=== PATIENT | male | born 1945 | race Caucasian/White ===

== ENCOUNTER 2020-09-06 14:26 | Inpatient (IN) | payer MEDICARE ==
[~2020-09-06] VITALS: Ht 172.7 cm; Wt 77.1 kg
[2020-09-06 14:55] LABS: BASOPHILS 0.2 % (0-2); EOSINOPHILS 1.4 % (0-7); HEMATOCRIT 28.8 % (42.0-54.0); HEMOGLOBIN 9.2 g/dL (13.5-17.5); IMMATURE GRANULOCYTES 0.2 % (0-5); LYMPHOCYTES 15.9 % (15-50); MCH 31.6 pg (26.0-34.0); MCHC 31.9 g/dL (31.0-37.0); MEAN PLATELET VOLUME 8.8 fL (7.4-10.4); MONOCYTES 4.7 % (2-11); NEUTROPHILS 77.6 % (40-80); PLATELET COUNT 304 10x3/uL (130-400); RBC 2.91 10x6/uL (4.20-6.10); RDW 15.3 % (11.5-14.5); WBC 10.1 10x3/uL (4.8-10.8)
[2020-09-06] MEDS ORDERED: BAYER CHEWABLE81 MG (14:57)
[2020-09-06] MEDS ORDERED: LIPITOR40 MG (14:58)
[2020-09-06] MEDS ORDERED: KEFLEX500 MG (14:59)
[2020-09-06] MEDS ORDERED: CARBIDOPA-LEVO1 EAC2 (14:59)
[2020-09-06] MEDS ORDERED: CALCIUM 500 +1 EAC3 (14:59)
[2020-09-06 15:00] VITALS: BP 109/57
[2020-09-06] MEDS ORDERED: DILTIAZEM 24HR120 M3 (15:00)
[2020-09-06] MEDS ORDERED: ACCUPRIL20 MG (15:00)
[2020-09-06] MEDS ORDERED: MAG-OX 400 MG400 MG (15:00)
[2020-09-06] MEDS ORDERED: CO Q-10100 MG (15:00)
[2020-09-06] MEDS ORDERED: OXYCODONE HCL10 MG (15:01)
[2020-09-06] MEDS ORDERED: VITAMIN B-1250 MG (15:01)
[2020-09-06 15:15] LABS: APTT 43.9 SECONDS (22.8-39.4); INR 3.36 (0.85-1.17); PROTIME 31.7 SECONDS (11.6-15.0)
[2020-09-06 15:24] LABS: ALBUMIN 2.7 g/dL (3.4-5.0); ALKALINE PHOSPHATASE 70 U/L (30-120); ALT (SGPT) 13 U/L (10-68); CALC OSMOLALITY 287 mosm/kg (275-300); CALCIUM 7.9 mg/dL (8.5-10.1); CARBON DIOXIDE 24.2 mmol/L (21.0-32.0); CHLORIDE - SERUM 108 mmol/L (98-107); CKMB 0.3 U/L (0.0-3.6); CREATINE KINASE 110 UL (21-232); CREATININE - SERUM 1.5 mg/dL (0.6-1.3); GLUCOSE 118 mg/dL (74-106); MAGNESIUM - SERUM 2.4 mg/dL (1.8-2.4); PROTEIN - SERUM 6.2 g/dL (6.4-8.2); SODIUM 141 mmol/L (136-145); TROPONIN-I 0.045 ng/mL (0.000-0.060); UREA NITROGEN 30 mg/dL (7-18); eGFR NON AFRICAN AMERICAN 48 mL/min (90-120)
[2020-09-06 15:28] LABS: POTASSIUM - SERUM 2.9 mmol/L (3.5-5.1); THYROID STIMULATING HORMONE 76.12 uIU/mL (0.36-3.74)
[2020-09-06 19:33] VITALS: BP 149/64
[2020-09-06 21:05] VITALS: BP 152/69
[2020-09-06 23:19] LABS: UDS - AMPHET NEGATIVE QUAL (NEGATIVE); UDS - BARB NEGATIVE QUAL (NEGATIVE); UDS - BENZO NEGATIVE QUAL (NEGATIVE); UDS - COCAINE NEGATIVE QUAL (NEGATIVE); UDS - OPIATE NEGATIVE QUAL (NEGATIVE); UDS - PCP NEGATIVE QUAL (NEGATIVE); UDS - THC NEGATIVE QUAL (NEGATIVE)
[2020-09-06 23:21] LABS: BILIRUBIN NEGATIVE (NEGATIVE); KETONE NEGATIVE (NEGATIVE); NITRITE POSITIVE (NEGATIVE); UROBILINOGEN NORMAL mg/dL (< 2)
[2020-09-06 23:24] LABS: BACTERIA MODERATE HPF (NONE SEEN); SQUAMOUS EPITHELIAL 0-5 HPF (0-4)
[2020-09-07 00:28] VITALS: BP 155/70
[2020-09-07 01:43] VITALS: BP 162/68
--- NOTE | 2020-09-07 01:50 | NUR ---
PT AWAKE AT THIS TIME USING URINAL. DENIES NEEDS, CALL LIGHT WITHIN REACH, WILL CONTINUE TO MONITOR.
--- NOTE | 2020-09-07 02:44 | NUR ---
potassium and ns infusion complete at this time.
[2020-09-07 05:44] VITALS: BP 154/76
[2020-09-07 06:44] LABS: BASOPHILS 0.3 % (0-2); EOSINOPHILS 3.3 % (0-7); HEMATOCRIT 28.9 % (42.0-54.0); LYMPHOCYTE ABS# 1.64 10x3/uL (1.32-3.57); LYMPHOCYTES 21.8 % (15-50); MCH 31.3 pg (26.0-34.0); MCHC 31.1 g/dL (31.0-37.0); MCV 100.3 fL (80.0-100.0); MEAN PLATELET VOLUME 9.1 fL (7.4-10.4); MONOCYTES 4.8 % (2-11); NEUTROPHIL ABS# 5.27 10x3/uL (1.78-5.38); NEUTROPHILS 69.8 % (40-80); PLATELET COUNT 321 10x3/uL (130-400); RBC 2.88 10x6/uL (4.20-6.10); RDW 15.4 % (11.5-14.5)
[2020-09-07 06:45] LABS: WBC 7.5 10x3/uL (4.8-10.8)
[2020-09-07 06:53] LABS: ALBUMIN 2.6 g/dL (3.4-5.0); BILIRUBIN - TOTAL 0.73 mg/dL (0.2-1.3); CARBON DIOXIDE 27.2 mmol/L (21.0-32.0); CREATININE - SERUM 1.2 mg/dL (0.6-1.3); MAGNESIUM - SERUM 2.4 mg/dL (1.8-2.4); PROTEIN - SERUM 6.1 g/dL (6.4-8.2)
[2020-09-07 06:54] LABS: ANION GAP 11.5 mmol/L (8-16); POTASSIUM - SERUM 3.7 mmol/L (3.5-5.1)
--- NOTE | 2020-09-07 08:00 | NUR ---
TALKING WITH ON PHONE. ANSWERS QUESTIONS AND ABLE TO FOLLOW INSTRUCTIONS. RN SPOKE WITH PER PT REQUEST ALSO.
[2020-09-07 20:02] VITALS: BP 178/90
[2020-09-07 22:58] VITALS: BP 165/88; BMI 25.9
[2020-09-08 01:01] VITALS: BP 143/76
--- NOTE | 2020-09-08 02:12 | NUR ---
PATIENT IS DROWSY BUT EASILY ROUSABLE. CONTINUES TO DISPLAY CONFUSION. REPORTS SOB WITH TURNING IN BED. PATIENT IS NONWEIGHT BEARING FOR FX TO LEFT HIP.
[2020-09-08 05:55] VITALS: BP 168/75
--- NOTE | 2020-09-08 07:15 | NUR ---
REC'D IN BED WITH EYES CLOSED EASILY TO AROUSED WHEN NAME IS CALLED. RESP EVEN AND UNLABORED WITH NO DISTRESS NOTED. CAN EXPRESS NEEDS AND WANTS. NO C/O NOTED OR VOICED AT THIS TIME. ASSESSMENT COMPLETED. C/L IN REACH AT BEDSIDE
--- NOTE | 2020-09-08 08:34 | NUR ---
PT MAYRA ISBELL WAS GIVEN UP DATE AT THIS TIME.
[2020-09-08 09:02] VITALS: BP 159/79
[2020-09-08 10:20] LABS: BASOPHILS 0.3 % (0-2); EOSINOPHILS 2.1 % (0-7); HEMATOCRIT 30.4 % (42.0-54.0); HEMOGLOBIN 9.5 g/dL (13.5-17.5); IMMATURE GRANULOCYTES 0.4 % (0-5); LYMPHOCYTE ABS# 1.58 10x3/uL (1.32-3.57); LYMPHOCYTES 20.6 % (15-50); MCH 31.5 pg (26.0-34.0); MCHC 31.3 g/dL (31.0-37.0); MCV 100.7 fL (80.0-100.0); MEAN PLATELET VOLUME 8.4 fL (7.4-10.4); MONOCYTES 3.9 % (2-11); NEUTROPHIL ABS# 5.59 10x3/uL (1.78-5.38); NEUTROPHILS 72.7 % (40-80); RBC 3.02 10x6/uL (4.20-6.10); RDW 15.5 % (11.5-14.5); WBC 7.7 10x3/uL (4.8-10.8)
[2020-09-08 10:21] LABS: PLATELET COUNT 252 10x3/uL (130-400)
[2020-09-08 10:41] LABS: ALBUMIN 2.5 g/dL (3.4-5.0); ANION GAP 9.7 mmol/L (8-16); BILIRUBIN - TOTAL 0.72 mg/dL (0.2-1.3); CALCIUM 7.8 mg/dL (8.5-10.1); CARBON DIOXIDE 26.6 mmol/L (21.0-32.0); CREATININE - SERUM 1.1 mg/dL (0.6-1.3); POTASSIUM - SERUM 3.3 mmol/L (3.5-5.1); PROTEIN - SERUM 5.1 g/dL (6.4-8.2)
--- NOTE | 2020-09-08 10:41 | NUR ---
RETURN CALL TO MAYRA ISBELL AT THIS TIME GIVEN ANOTHER UPDATE ON PT.
[2020-09-08 12:42] VITALS: BP 163/78
--- NOTE | 2020-09-08 14:30 | NUR ---
PATIENT IS WITHOUT DISTRESS.MONITOR FOR NEEDS
[2020-09-08 15:48] VITALS: BP 110/83
--- NOTE | 2020-09-08 19:13 | NUR ---
PATIENT RESTING IN BED WITH NO S/S OF DISTRESS. PATIENT DENIES NEEDS AT THIS TIME. BED IN LOWEST POSITION, CALL LIGHT WITHIN REACH. ENCOURAGED PATIENT TO CALL IF PATIENT HAS NEEDS.
[2020-09-08 20:18] VITALS: BP 146/52
--- NOTE | 2020-09-08 20:20 | NUR ---
ADMINISTERED MEDS PER ORDERS. PATIENT MALDONADO WELL. ENCOURAGED TO CALL IF PATIENT HAS NEEDS.
[2020-09-09 00:59] VITALS: BP 131/74
[2020-09-09 05:05] VITALS: BP 144/96
[2020-09-09 06:28] LABS: BASOPHILS 0.3 % (0-2); EOSINOPHILS 1.8 % (0-7); HEMATOCRIT 26.2 % (42.0-54.0); HEMOGLOBIN 8.2 g/dL (13.5-17.5); IMMATURE GRANULOCYTES 0.2 % (0-5); LYMPHOCYTE ABS# 1.75 10x3/uL (1.32-3.57); LYMPHOCYTES 26.6 % (15-50); MCH 31.3 pg (26.0-34.0); MCHC 31.3 g/dL (31.0-37.0); MEAN PLATELET VOLUME 9.2 fL (7.4-10.4); MONOCYTES 4.1 % (2-11); NEUTROPHIL ABS# 4.41 10x3/uL (1.78-5.38); PLATELET COUNT 284 10x3/uL (130-400); RBC 2.62 10x6/uL (4.20-6.10); RDW 15.6 % (11.5-14.5); WBC 6.6 10x3/uL (4.8-10.8)
[2020-09-09 06:38] LABS: PROTIME 45.9 SECONDS (11.6-15.0)
[2020-09-09 06:40] LABS: INR 5.38 (0.85-1.17)
--- NOTE | 2020-09-09 06:43 | NUR ---
PAGED DR. AYALA IN REGARDS TO INR 5.38
--- NOTE | 2020-09-09 06:48 | NUR ---
SPOKE WITH DR. AYALA WHO GAVE ORDER TO HOLD COUMADIN TIMES ONE DOSE AND RECHECK INR IN THE AM. ORDERS ENTERED.
[2020-09-09 07:00] LABS: ALBUMIN 2.5 g/dL (3.4-5.0); ALKALINE PHOSPHATASE 61 U/L (30-120); CALC OSMOLALITY 286 mosm/kg (275-300); CALCIUM 7.5 mg/dL (8.5-10.1); CARBON DIOXIDE 26.5 mmol/L (21.0-32.0); CHLORIDE - SERUM 111 mmol/L (98-107); GLUCOSE 91 mg/dL (74-106); POTASSIUM - SERUM 3.4 mmol/L (3.5-5.1); PROTEIN - SERUM 5.2 g/dL (6.4-8.2); SODIUM 142 mmol/L (136-145); UREA NITROGEN 24 mg/dL (7-18); eGFR NON AFRICAN AMERICAN 77 mL/min (90-120)
[2020-09-09 07:14] LABS: ALT (SGPT) 11 U/L (10-68)
--- NOTE | 2020-09-09 07:17 | NUR ---
BEDSIDE REPORT RECIEVED FROM NIGHT NURSE, PATIENT IN BED SLEEPING AROUSES TO VOICE, DENIES NEEDS AT THIS TIME. BED LOW POSITION, CALL LIGHT IN REACH. WILL CONTINUE TO MONITOR.
[2020-09-09 08:14] VITALS: BP 114/58
[2020-09-09 12:32] VITALS: BP 117/48
[2020-09-09 15:19] LABS: INR 4.87 (0.85-1.17); PROTIME 42.4 SECONDS (11.6-15.0)
[2020-09-09 17:04] VITALS: BP 128/56
--- NOTE | 2020-09-09 19:56 | NUR ---
PATIENT RESTING IN BED WITH EYES CLOSED AND NO S/S OF DISTRESS. BED IN LOWEST POSITION AND CALL LIGHT WITHIN REACH.
[2020-09-09 20:00] VITALS: BP 145/58
[2020-09-10] VITALS (7 sets, daily range): BP systolic 116–151; BP diastolic 38–71
--- NOTE | 2020-09-10 08:17 | NUR ---
IN BED ASLEEP. AROUSES TO VOICE. DENIES NEEDS AT THIS TIME. BED LOW POSITION, CALL LIGHT IN REACH. SET ROOM PHONE IN REACH. URINAL IN REACH, NASAL CANNULA IN PLACE. WILL CONTINUE TO MONITOR.
--- NOTE | 2020-09-10 12:29 | NUR ---
IN BED TALKING ON THE PHONE. DENIES NEEDS AT THIS TIME. BED LOW POSITION, CALL LIGHT IN REACH. WILL CONTINUE TO MONITOR.
--- NOTE | 2020-09-10 12:57 | NUR ---
Nutrition follow-up: Diet: Regular PO intake ~25-50% of meals; has been NPO for some meals Labs reviewed Wt: 170# Will continue to provide food choices and honor food preferences. RDN follow-up: 09/14/20
--- NOTE | 2020-09-10 19:34 | NUR ---
PATIENT RESTING IN BED WITH NO S/S OF DISTRESS AND DENIES NEEDS AT THIS TIME. BED IN LOWEST POSITION AND CALL LIGHT WITHIN REACH. ENCOURAGED THE PATIENT TO CALL IF HE HAS NEEDS.
--- NOTE | 2020-09-10 20:17 | NUR ---
ADMINISTERED MEDS PER ORDERS. PATIENT MALDONADO WELL. DENIES OTHER NEEDS AT THIS TIME.
[2020-09-11 03:55] VITALS: BP 168/76
[2020-09-11 07:12] LABS: BASOPHILS 0.4 % (0-2); EOSINOPHILS 2.3 % (0-7); HEMOGLOBIN 8.8 g/dL (13.5-17.5); IMMATURE GRANULOCYTES 0.2 % (0-5); LYMPHOCYTE ABS# 1.42 10x3/uL (1.32-3.57); MCH 31.5 pg (26.0-34.0); MCHC 31.4 g/dL (31.0-37.0); MCV 100.4 fL (80.0-100.0); MONOCYTES 3.9 % (2-11); NEUTROPHIL ABS# 3.87 10x3/uL (1.78-5.38); NEUTROPHILS 68.2 % (40-80); PLATELET COUNT 272 10x3/uL (130-400); RBC 2.79 10x6/uL (4.20-6.10); RDW 15.4 % (11.5-14.5); WBC 5.7 10x3/uL (4.8-10.8)
[2020-09-11 07:24] LABS: ALBUMIN 2.5 g/dL (3.4-5.0); ALKALINE PHOSPHATASE 69 U/L (30-120); ALT (SGPT) 11 U/L (10-68); CALC OSMOLALITY 277 mosm/kg (275-300); CALCIUM 7.8 mg/dL (8.5-10.1); CARBON DIOXIDE 25.7 mmol/L (21.0-32.0); CHLORIDE - SERUM 108 mmol/L (98-107); CREATININE - SERUM 0.9 mg/dL (0.6-1.3); GLUCOSE 88 mg/dL (74-106); POTASSIUM - SERUM 3.7 mmol/L (3.5-5.1); PROTEIN - SERUM 5.5 g/dL (6.4-8.2); SODIUM 139 mmol/L (136-145); UREA NITROGEN 15 mg/dL (7-18); eGFR NON AFRICAN AMERICAN 87 mL/min (90-120)
[2020-09-11 09:01] VITALS: BP 168/75
--- NOTE | 2020-09-11 09:35 | NUR ---
PT SITTING UP IN BED TALKING ON PHONE. RESP EVEN AND UNLABORED. O2 @ 2L NC IN PLACE. PT DENIES PAIN AT THIS TIME. IV TO LEFT AC WITH NS @ 50ML/HR INFUSING VIA PUMP. SITE WITHOUT REDNESS OR EDEMA. DENIES NEEDS AT THIS TIME. CL WITHIN REACH. ENCOURAGED TO CALL WITH NEEDS. CONTINUE POC
[2020-09-11 14:28] VITALS: BP 139/60
[2020-09-11 18:33] VITALS: BP 116/48
[2020-09-11 21:18] VITALS: BP 153/68
[2020-09-12 00:51] VITALS: BP 137/63
--- NOTE | 2020-09-12 03:17 | NUR ---
ASSESSED AT THE BEGINNING OF THE SHIFT. PT IS ALERT AND ORIENTED WITH A TOUCH OF CONFUSION. HE IS ABLE TO CALL FOR ASSIST AND USE THE URINAL MOST OF THE TIME. O2 IS IN PLACE AT 2 LITERS AND TELEMETRY SHOWS 63 SINUS RHYTHM. HE HAS NOT COMPLAINTED ABOUT ANY DISTRESS AND HAS LEFT THE TV OFF TONIGHT.
[2020-09-12 05:48] VITALS: BP 148/72
[2020-09-12 07:56] VITALS: BP 147/70
--- NOTE | 2020-09-12 09:45 | NUR ---
PT RESTING QUIETLY IN BED. NO ACUTE DISTSRESS NOTED AT THIS TIME. O2 @ 2L NC IN PLACE. DENIES PAIN. IV TO LEFT AC WITH NS @ 50ML/HR INFUSING VIA PUMP. SITE WITHOUT REDNESS OR EDEMA. DENIES FURTHER NEEDS AT THIS TIME. CL WITHIN REACH. ENCOURAGED TO CALL WITH NEEDS. CONTINUE POC
--- NOTE | 2020-09-12 09:58 | MORECARE ---
CASE MANAGEMENT DISCHARGE SUMMARY PATIENT: MARICRUZ ISBELL UNIT: [id number] ADM DATE: 09/06/20 AGE: 75 : 45 SEX: M ROOM/BED: D.2201 AUTHOR: MEGHAN HOUSE PHYSICIAN: REFERRING PHYSICIAN: KAT OSEI MD DATE OF SERVICE: 09/12/20 Discharge Plan Patient Name: MARICRUZ ISBELL [facility] [facility] 1945 Planned Disposition: [facility] Facility Anticipated Discharge Date: Discharge Date: Expected LOS: Initial Reviewer: [email or web address] Initial Review Date: 09/06/2020 Generated: 09/12/20 10:57 am Patient Name: MARICRUZ ISBELL Page [id number] at 0958 All edits/amendments must be made on the electronic document DICTATION DATE: 09/12/2057 ENGLISH TUTOR: OPAL 09/12/2057 RPT#: [id number] DC DATE: STATUS: ADM IN [facility] [address] [place] [address] END OF REPORT
[2020-09-12 12:23] VITALS: BP 115/65
[2020-09-12 17:15] VITALS: BP 142/71
[2020-09-12 20:31] VITALS: BP 146/66
--- NOTE | 2020-09-12 22:11 | NUR ---
PT IS SLEEP IN THE BEGINNING OF SHIFT. EASY TO AROUSE WHEN GIVEN MEDICATION. ALERT AND ORIENTED. NO PAIN NOR DISTRESS NOTED. WILL CONTINUE POC.
[2020-09-13 00:25] VITALS: BP 132/61
[2020-09-13 04:01] VITALS: BP 142/74
--- NOTE | 2020-09-13 04:58 | NUR ---
PT RESTED WELL THROUGHOUT THE NIGHT. NO COMPLAINTS OF PAIN NOR DISCOMFORT. O2 IS STILL AT 2L. NO SOB NOTED. PT CURRENTLY RESTING AT THIS TIME.
[2020-09-13 06:58] LABS: ALBUMIN 2.6 g/dL (3.4-5.0); ALKALINE PHOSPHATASE 80 U/L (30-120); ALT (SGPT) 12 U/L (10-68); BILIRUBIN - TOTAL 0.91 mg/dL (0.2-1.3); CALC OSMOLALITY 270 mosm/kg (275-300); CALCIUM 7.9 mg/dL (8.5-10.1); CARBON DIOXIDE 25.4 mmol/L (21.0-32.0); CHLORIDE - SERUM 106 mmol/L (98-107); GLUCOSE 87 mg/dL (74-106); POTASSIUM - SERUM 3.4 mmol/L (3.5-5.1); PROTEIN - SERUM 5.8 g/dL (6.4-8.2); SODIUM 136 mmol/L (136-145); UREA NITROGEN 12 mg/dL (7-18); eGFR NON AFRICAN AMERICAN 77 mL/min (90-120)
[2020-09-13 07:07] LABS: INR 1.44 (0.85-1.17); PROTIME 16.3 SECONDS (11.6-15.0)
[2020-09-13 07:38] LABS: BASOPHILS 0.1 % (0-2); EOSINOPHILS 1.4 % (0-7); HEMATOCRIT 29.1 % (42.0-54.0); HEMOGLOBIN 9.2 g/dL (13.5-17.5); IMMATURE GRANULOCYTES 0.3 % (0-5); LYMPHOCYTE ABS# 1.77 10x3/uL (1.32-3.57); LYMPHOCYTES 24.9 % (15-50); MCH 31.4 pg (26.0-34.0); MCHC 31.6 g/dL (31.0-37.0); MCV 99.3 fL (80.0-100.0); MEAN PLATELET VOLUME 9.4 fL (7.4-10.4); MONOCYTES 3.7 % (2-11); NEUTROPHIL ABS# 4.96 10x3/uL (1.78-5.38); NEUTROPHILS 69.6 % (40-80); PLATELET COUNT 269 10x3/uL (130-400); RBC 2.93 10x6/uL (4.20-6.10); RDW 16.2 % (11.5-14.5); WBC 7.1 10x3/uL (4.8-10.8)
--- NOTE | 2020-09-13 07:46 | MORECARE ---
CASE MANAGEMENT DISCHARGE SUMMARY PATIENT: MARICRUZ ISBELL UNIT: [id number] ADM DATE: 09/06/20 AGE: 75 : 45 SEX: M ROOM/BED: D.2201 AUTHOR: MEGHAN HOUSE PHYSICIAN: REFERRING PHYSICIAN: KAT OSEI MD DATE OF SERVICE: 09/13/20 Discharge Plan Patient Name: MARICRUZ ISBELL [facility] [facility] 1945 Planned Disposition: [facility] Facility Anticipated Discharge Date: Discharge Date: Expected LOS: Initial Reviewer: [email or web address] Initial Review Date: 09/06/2020 Generated: 09/13/20 8:46 am DCPIA - Discharge Planning Initial Assessment Updated by [email or web address]: Aleja Fox on 09/13/20 7:45 am * Facility Name [facility] External Providers External Provider: [facility] Next Contact Date: Service Request Date: Service Type: Resolution: Reviewer: Comments: Last DP export: 09/12/20 8:58 a Patient Name: MARICRUZ ISBELL Page [phone] at 0746 All edits/amendments must be made on the electronic document DICTATION DATE: 09/13/20745 WHARF TENDER: OPAL 09/13/20745 RPT#: [id number] DC DATE: STATUS: ADM IN [facility] [address] [place] [address] END OF REPORT
--- NOTE | 2020-09-13 07:59 | NUR ---
PATIENT K+ IS 3.[address] WITH MORNING MEDS. CONTINUE WITH PLAN OF CARE
[2020-09-13 08:13] VITALS: BP 154/77
[2020-09-13 12:30] VITALS: BP 141/66
--- NOTE | 2020-09-13 14:41 | NUR ---
PATIENT LAYING IN BED EASILY AWAKENED. NO S/S OF DISTRESS. CL IN REACH. ADMINISTERED SCHEDULED MEDICATIONS. CONTINUE WITH PLAN OF CARE
[2020-09-13 18:35] VITALS: BP 153/72
[2020-09-14 01:16] VITALS: BP 146/65
[2020-09-14 05:15] VITALS: BP 149/59
--- NOTE | 2020-09-14 05:28 | NUR ---
Pt has rested in bed this noc. Assisted with repositioning. IV running per order. Has denied pain/discomfort all night. Pt has been oriented to self and place also knows it is the night. SLept well.
--- NOTE | 2020-09-14 09:39 | NUR ---
ALERT AND ORIENTED TO SELF AND PLACE. ASSESSMENT COMPLETE. DENIES NEEDS. WILL CONTINUE TO MONITOR.
[2020-09-14 10:26] VITALS: BP 146/73
[2020-09-14 10:49] VITALS: Ht 172.7 cm; Wt 77.1 kg
--- NOTE | 2020-09-14 15:00 | NUR ---
IV ACCIDENTALLY PULLED OUT BY PATIENT TO LEFT AC WITH TIP INTACT. RESITED TO RIGHT OUTTER AC AFTER ONE ATTEMPT WITH 22 GUAGE.
[2020-09-14 15:12] VITALS: BP 147/65
[2020-09-14 19:30] VITALS: BP 167/79
[2020-09-14 21:01] VITALS: BP 139/59
--- NOTE | 2020-09-14 23:12 | NUR ---
Assumed care of pt after report completed with day nurse. Pt lying in bed watching TV on initial report. IV infusing per order. Pt is A&OX4 tonight. No c/o pain/discomfort. Pt did verbalize his excitement to work with therapies today and is hopeful for progress with strengthening. Pt has been utilizing urinal so far this shift. Currently resting in bed with lights and TV off.
[2020-09-15 00:24] VITALS: BP 127/59
--- NOTE | 2020-09-15 05:13 | NUR ---
Pt remains resting in bed. Repositioned and assisted to clean after bouts of incontinence. Continues to deny pain.
[2020-09-15 05:55] VITALS: BP 184/88
[2020-09-15 08:36] VITALS: BP 172/77
--- NOTE | 2020-09-15 11:39 | NUR ---
RESTING IN BED, NO DISTESS NOTED, IV INFUSING PER RAC, O2 PER NC, TELE IN PLACE, CONT TO MONITOR
[2020-09-15 12:08] VITALS: BP 138/64
[2020-09-15 15:55] LABS: INR 1.53 (0.85-1.17)
[2020-09-15 17:06] VITALS: BP 180/83
--- NOTE | 2020-09-15 17:11 | NUR ---
INCONT CARE PROVIDED, DRESSING TO COCCYX DRY AND INTACT, CONT TO MONITOR SKIN
[2020-09-15 20:37] VITALS: BP 162/74
--- NOTE | 2020-09-15 21:40 | NUR ---
Assumed care of patient after rounds/report. Pt lying in bed watching TV. Remains A&OX4. Denies pain/discomfort. Addendum to assessment is pt remains on O2 via NC @ 2Lpm. Sats remain WNL and no SOB/Dyspnea.
[2020-09-16] VITALS (8 sets, daily range): BP systolic 137–185; BP diastolic 60–80
--- NOTE | 2020-09-16 06:24 | NUR ---
Pt is in bed resting at this time. Pt had elevated BP on assessment and this nurse rechecked same. Provider o/c notified and telephone order rec'd to increase scheduled AM diltiazem and administer. AM meds given and BP rechecked. BP is lowering currently. Pt has remained asymptomatic of hypertension.
--- NOTE | 2020-09-16 07:41 | NUR ---
resting in bed, no distress noted, iv infusing, cont to monitor pain and bp
[2020-09-16 07:45] LABS: BASOPHILS 0.3 % (0-2); EOSINOPHILS 1.9 % (0-7); HEMATOCRIT 28.5 % (42.0-54.0); HEMOGLOBIN 9.3 g/dL (13.5-17.5); IMMATURE GRANULOCYTES 0.2 % (0-5); LYMPHOCYTE ABS# 1.56 10x3/uL (1.32-3.57); LYMPHOCYTES 24.8 % (15-50); MCH 31.6 pg (26.0-34.0); MCHC 32.6 g/dL (31.0-37.0); MCV 96.9 fL (80.0-100.0); MEAN PLATELET VOLUME 9.3 fL (7.4-10.4); MONOCYTES 5.1 % (2-11); NEUTROPHIL ABS# 4.27 10x3/uL (1.78-5.38); NEUTROPHILS 67.7 % (40-80); PLATELET COUNT 222 10x3/uL (130-400); RBC 2.94 10x6/uL (4.20-6.10); RDW 16.3 % (11.5-14.5); WBC 6.3 10x3/uL (4.8-10.8)
[2020-09-16 08:15] LABS: ALBUMIN 2.4 g/dL (3.4-5.0); ALKALINE PHOSPHATASE 84 U/L (30-120); ALT (SGPT) 14 U/L (10-68); BILIRUBIN - TOTAL 0.86 mg/dL (0.2-1.3); CALC OSMOLALITY 272 mosm/kg (275-300); CALCIUM 7.8 mg/dL (8.5-10.1); CARBON DIOXIDE 26.1 mmol/L (21.0-32.0); CHLORIDE - SERUM 105 mmol/L (98-107); CREATININE - SERUM 0.9 mg/dL (0.6-1.3); GLUCOSE 82 mg/dL (74-106); POTASSIUM - SERUM 3.2 mmol/L (3.5-5.1); PROTEIN - SERUM 5.4 g/dL (6.4-8.2); SODIUM 138 mmol/L (136-145); UREA NITROGEN 8 mg/dL (7-18); eGFR NON AFRICAN AMERICAN 87 mL/min (90-120)
--- NOTE | 2020-09-16 16:25 | MORECARE ---
CASE MANAGEMENT DISCHARGE SUMMARY PATIENT: MARICRUZ ISBELL UNIT: [id number] ADM DATE: 09/06/20 AGE: 75 : 45 SEX: M ROOM/BED: D.2201 AUTHOR: MEGHAN HOUSE PHYSICIAN: REFERRING PHYSICIAN: KAT OSEI MD DATE OF SERVICE: 09/16/20 Discharge Plan Patient Name: MARICRUZ ISBELL [facility] [facility] 1945 Planned Disposition: Longterm Facility Anticipated Discharge Date: Discharge Date: Expected LOS: Initial Reviewer: [email or web address] Initial Review Date: 09/06/2020 Generated: 09/16/20 5:25 pm Comments DCP- Discharge Planning Updated by [email or web address]: Aleja Fox on 09/13/20 6:[address] PER JAJA WITH [facility], 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 PLAN WILL BE TO RETURN THERE THEN AFTER REHAB RETURN HOME TO HIS CM TO FOLLOW AND ASSIST NEEDED DCPIA - Discharge Planning Initial Assessment Updated by [email or web address]: Aleja Fox on 09/13/20 7:45 am * Facility Name [facility] Last DP export: 09/13/20 6:46 a Patient Name: MARICRUZ ISBELL Page [phone] at 1626 All edits/amendments must be made on the electronic document DICTATION DATE: 09/16/201624 WAREHOUSE LEAD: OPAL 09/16/20 162 RPT#: [id number] DC DATE: STATUS: ADM IN [facility] [address] [place] [address] END OF REPORT
--- NOTE | 2020-09-16 18:40 | MORECARE ---
"CASE MANAGEMENT DISCHARGE SUMMARY PATIENT: MARICRUZ TALAMANTES UNIT: [id number] ADM DATE: 09/06/20 AGE: 75 : 45 SEX: M ROOM/BED: D.2201 AUTHOR: MEGHAN HOUSE PHYSICIAN: REFERRING PHYSICIAN: KAT OSEI MD DATE OF SERVICE: 09/16/20 Discharge Plan Patient Name: MARICRUZ TALAMANTES Facility: [facility]:[place] : 1945 Planned Disposition: Penitentiary Facility Anticipated Discharge Date: Discharge Date: Expected LOS: Initial Reviewer: [email or web address] Initial Review Date: 09/06/2020 Generated: 09/16/20 7:39 pm Comments DCP- Discharge Planning Updated by [email or web address]: Tad Ulrich on 09/16/20 5:[address] DCP CHANGE | No return to the [facility]. Conference with Dr. Pabon at Nurse's station. Dr. Pabon informed CM team that the patient's family does not want the patient to return to the [facility]. Phone call to Rhonda Talamantes, spouse of patient. Mrs Talamantes stated that she does not want the patient to return to the [facility]. Mrs Talamantes stated that her choices for placement would be (1) [facility]; ([facility]; (3) [facility]; (4) [place]; (5) [facility] Inpatient Rehab; and (6) [facility] Inpatient Rehab. NILDA telephonically signed and placed in chart. CM will continue to follow and will assist as needed with dc plans/needs. 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 PLAN WILL BE TO RETURN THERE THEN AFTER REHAB RETURN HOME TO HIS CM TO FOLLOW AND ASSIST NEEDED DCPIA - Discharge Planning Initial Assessment Updated by [email or web address]: Aleja Fox on 09/13/20 7:45 am * Facility Name [facility] Last DP export: 09/16/20 3:25 p Patient Name: MARICRUZ TALAMANTES Page [phone] at 1840 All edits/amendments must be made on the electronic document DICTATION DATE: 09/16/201838 FOURDRINIER MACHINE TENDER: OPAL 09/16/201838 RPT#: [id number] DC DATE: STATUS: ADM IN [facility] [address] [place] [address] END OF REPORT"
--- NOTE | 2020-09-16 19:30 | NUR ---
Assumed care of pt after report/rounds. Pt lying in bed with IV running to patent IV per order. Denies pain/discomfort. O2 per NC and no dyspnea/SOB.
--- NOTE | 2020-09-16 20:23 | NUR ---
Addendum to shift assessment-Pt is not suicidal or having s/sx of abuse.
[2020-09-17 01:51] VITALS: BP 145/65
[2020-09-17 06:24] VITALS: BP 151/22
--- NOTE | 2020-09-17 08:26 | NUR ---
AWAKE AND ALERT. ORIENTED X3. NO C/O AT THIS TIME. ANXIOUS TO HAVE THERAPY RESUMED THIS AM. WILL DISCUSS WITH PT. LUNGS ARE CLEAR BILATERALLY, NO COUGH NOTED. SKIN IS INTACT WITHOUT REDNESS EXCEPT 2 SMALL OPEN AREA ON COCCYX WITH MEPELEX IN PLACE. IV TO RIGHT AC IS PATENT WITHOUT REDNESS AT INSERTION SITE. DENIES NEEDS.
[2020-09-17 08:51] LABS: CALC OSMOLALITY 266 mosm/kg (275-300); CALCIUM 7.8 mg/dL (8.5-10.1); CARBON DIOXIDE 23.7 mmol/L (21.0-32.0); CHLORIDE - SERUM 101 mmol/L (98-107); CREATININE - SERUM 0.9 mg/dL (0.6-1.3); GLUCOSE 84 mg/dL (74-106); POTASSIUM - SERUM 3.1 mmol/L (3.5-5.1); SODIUM 135 mmol/L (136-145); UREA NITROGEN 7 mg/dL (7-18); eGFR NON AFRICAN AMERICAN 87 mL/min (90-120)
[2020-09-17 08:56] LABS: BASOPHILS 0.5 % (0-2); EOSINOPHILS 1.9 % (0-7); HEMOGLOBIN 10.2 g/dL (13.5-17.5); IMMATURE GRANULOCYTES 0.2 % (0-5); LYMPHOCYTE ABS# 1.93 10x3/uL (1.32-3.57); MCH 32.1 pg (26.0-34.0); MCHC 32.9 g/dL (31.0-37.0); MCV 97.5 fL (80.0-100.0); MEAN PLATELET VOLUME 9.6 fL (7.4-10.4); NEUTROPHIL ABS# 3.88 10x3/uL (1.78-5.38); NEUTROPHILS 62.4 % (40-80); PLATELET COUNT 255 10x3/uL (130-400); RBC 3.18 10x6/uL (4.20-6.10); RDW 16.3 % (11.5-14.5); WBC 6.2 10x3/uL (4.8-10.8)
[2020-09-17 09:13] VITALS: BP 167/78
--- NOTE | 2020-09-17 10:00 | NUR ---
ATE MOST OF BREAKFAST. TOOK AM MEDS WITHOUT DIFFICULTY. DENIES NEEDS.
--- NOTE | 2020-09-17 10:10 | MORECARE ---
"CASE MANAGEMENT DISCHARGE SUMMARY PATIENT: MARICRUZ TALAMANTES UNIT: [id number] ADM DATE: 09/06/20 AGE: 75 : 45 SEX: M ROOM/BED: D.2201 AUTHOR: HARSH,DOC PHYSICIAN: REFERRING PHYSICIAN: KAT OSEI MD DATE OF SERVICE: 09/17/20 Discharge Plan Patient Name: MARICRUZ TALAMANTES Facility: [facility]:[place] : 1945 Planned Disposition: Senior Living Facility Anticipated Discharge Date: Discharge Date: Expected LOS: Initial Reviewer: [id number] Initial Review Date: 09/06/2020 Generated: 09/17/20 11:09 am Comments DCP- Discharge Planning Updated by [email or web address]: Aleja Fox on 09/17/20 9:[address] SPOKE WITH YOVANY AT [facility] AND THEY DO NOT HAVE ANY BEDS AT THIS TIME, [facility]) DCP- Discharge Planning Updated by [email or web address]: Tad Ulrich on 09/16/20 5:[address] DCP CHANGE | No return to the [facility]. Conference with Dr. Pabon at Nurse's station. Dr. Pabon informed CM team that the patient's family does not want the patient to return to the [facility]. Phone call to Rhonda Talamantes, spouse of patient. Mrs Talamantes stated that she does not want the patient to return to the [facility]. Mrs Talamantes stated that her choices for placement would be (1) [facility]; (2) [facility]; (3) [facility]; (4) [place]; (5) [facility] Inpatient Rehab; and (6) [facility] Inpatient Rehab. NILDA telephonically signed and placed in chart. CM will continue to follow and will assist as needed with dc plans/needs. 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 PLAN WILL BE TO RETURN THERE THEN AFTER REHAB RETURN HOME TO HIS CM TO FOLLOW AND ASSIST NEEDED DCPIA - Discharge Planning Initial Assessment Updated by [email or web address]: Aleja Fox on 09/13/20 7:45 am * Facility Name [facility] External Providers External Provider: [facility] Next Contact Date: Service Request Date: Service Type: Resolution: Reviewer: Comments: Coverage Notice Reviewer: [email or web address] Logan Ulrich Notice Issued Date-Time: 09/16/2020 18:05 Notice Type: Patient Choice Letter Notice Delivered To: Patient Relationship to Patient: Self Physician Office Rep Name: Delivery Method: MAIL - Mail Caitlin Days: Prior Verbal Notification: Recipient Understood Notice: Yes Recipient Signature: Yes Med Rec Note Co-signed by Attending: Coverage Notice Comment: (1) [facility]; ([place]) [facility]; (3) [facility]; (4) [place]; (5) [facility] Inpatient Rehab; and (6) [facility] Inpatient Rehab. Last DP export: 09/16/20 5:40 p Patient Name: MARICRUZ TALAMANTES Page [phone] at 1010 All edits/amendments must be made on the electronic document DICTATION DATE: 09/17/20 1010 SUPERVISOR STOCK RANCH: OPAL 09/17/20 1010 RPT#: [id number] DC DATE: STATUS: ADM IN [facility] [address] [place] [address] END OF REPORT"
--- NOTE | 2020-09-17 11:17 | NUR ---
Rehab Prescreening Consult recieved and patient was discussed in the IDT meeting. He came from the [facility], but does not want to return there. [facility] or [facility] discharge. The CM will make referrels to these facilities. Rachel Hawkins RN Clinical Liaison, Rehab
--- NOTE | 2020-09-17 12:33 | NUR ---
Nutrition follow-up: Pt receiving a regular diet PO intake ~50% average of last 6 meals Labs reviwed Wt: 170#; stable since jey Loose stools PO intake if fair at this time Will continue to provide food choices and honor food preferences. Will offer nutritional supplements RDN follow-up: 09/20/20
[2020-09-17 14:12] VITALS: BP 128/65
--- NOTE | 2020-09-17 15:00 | NUR ---
BAG BROUGHT FROM HOME. HAPPILY GOING THRU ITS CONTENTS.
--- NOTE | 2020-09-17 17:25 | NUR ---
OT NOTE: PT PERFORMED BED MOB WITH MOD ASSIST FOR SUPINE TO SIT; SITTING BALANCE FAIR.. PT WITH SLIGHT LEAN TOWARDS L SIDE. PERFORMED UE/LE EXS; SIT TO STAND WITH MOD ASSIST X 2. SIMPLE GROOMING TASKS WITH SET UP. SIT TO SUPINE WITH MOD ASSIST. POSITIONING IN BED WITH MAX X 2. YOVANY STILL, OTR/L 250-310
--- NOTE | 2020-09-17 18:14 | NUR ---
ATE ABOUT HALF OF SUPPER. HERE TO VISIT. DENIES NEEDS. NO CHANGES NOTED.
[2020-09-17 18:15] VITALS: BP 170/79
[2020-09-17 18:59] LABS: SARS-CoV-2 ANTIGEN NEGATIVE- SARS-COV-2 (NEGATIVE)
[2020-09-17 21:36] VITALS: BP 160/71
--- NOTE | 2020-09-17 22:27 | NUR ---
Assumed care of pt after report/rounds. Pt remains A&OX4 and continues to verbalize wants/needs clearly, appropriateyl and without difficulty or hesitation. Denies pain/discomfort. Lying in bed with glasses on watching TV. IV remains patent and running per order.
[2020-09-18] VITALS: BP 160/74
[2020-09-18 04:00] VITALS: BP 170/79
--- NOTE | 2020-09-18 04:42 | NUR ---
Pt has remained in bed and utilized call light to request assist t/o the night as needed. Pt has still had no c/o pain/discomfort except when repositioning in bed but, does resolve after movement. Lying in bed resting at this time.
[2020-09-18 07:25] LABS: INR 1.88 (0.85-1.17)
[2020-09-18 08:32] VITALS: BP 171/77
[2020-09-18 08:33] LABS: BASOPHILS 0.5 % (0-2); EOSINOPHILS 2.7 % (0-7); HEMATOCRIT 28.9 % (42.0-54.0); HEMOGLOBIN 9.4 g/dL (13.5-17.5); IMMATURE GRANULOCYTES 0.3 % (0-5); LYMPHOCYTE ABS# 1.64 10x3/uL (1.32-3.57); MCHC 32.5 g/dL (31.0-37.0); MCV 98.3 fL (80.0-100.0); MEAN PLATELET VOLUME 9.2 fL (7.4-10.4); MONOCYTES 5.8 % (2-11); NEUTROPHIL ABS# 3.67 10x3/uL (1.78-5.38); NEUTROPHILS 62.7 % (40-80); PLATELET COUNT 220 10x3/uL (130-400); RBC 2.94 10x6/uL (4.20-6.10); RDW 16.5 % (11.5-14.5); WBC 5.9 10x3/uL (4.8-10.8)
[2020-09-18 08:39] LABS: ALBUMIN 2.4 g/dL (3.4-5.0); ALKALINE PHOSPHATASE 90 U/L (30-120); ALT (SGPT) 17 U/L (10-68); BILIRUBIN - TOTAL 0.84 mg/dL (0.2-1.3); CALC OSMOLALITY 263 mosm/kg (275-300); CALCIUM 7.8 mg/dL (8.5-10.1); CARBON DIOXIDE 26.5 mmol/L (21.0-32.0); CHLORIDE - SERUM 103 mmol/L (98-107); CREATININE - SERUM 0.8 mg/dL (0.6-1.3); GLUCOSE 84 mg/dL (74-106); POTASSIUM - SERUM 3.2 mmol/L (3.5-5.1); PROTEIN - SERUM 5.5 g/dL (6.4-8.2); SODIUM 134 mmol/L (136-145); eGFR NON AFRICAN AMERICAN > 90 mL/min (90-120)
[2020-09-18 08:40] LABS: UREA NITROGEN 5 mg/dL (7-18)
[2020-09-18] MEDS ORDERED: WARFARIN SODIUM4 MG NG (09:19)
[2020-09-18] MEDS ORDERED: SYNTHROID50 MCG PO (09:23)
[2020-09-18] MEDS ORDERED: K-DUR20 MEQ PO (09:24)
--- NOTE | 2020-09-18 12:19 | MORECARE ---
"CASE MANAGEMENT DISCHARGE SUMMARY PATIENT: MARICRUZ TALAMANTES UNIT: [id number] ADM DATE: 09/06/20 AGE: 75 : 45 SEX: M ROOM/BED: D.2201 AUTHOR: HARSH,DOC PHYSICIAN: REFERRING PHYSICIAN: KAT OSEI MD DATE OF SERVICE: 09/18/20 Discharge Plan Patient Name: MARICRUZ TALAMANTES Facility: [facility]:[place] : 1945 Planned Disposition: [facility] Facility Anticipated Discharge Date: Discharge Date: Expected LOS: Initial Reviewer: [email or web address] Initial Review Date: 09/06/2020 Generated: 09/18/20 1:18 pm Comments DCP- Discharge Planning Updated by [email or web address]: Aleja Fox on 09/18/20 11:[address] PATIENT HAS BEEN ACCEPTED TO [facility] AND WILL BE GOING TO A SKILLED BED THEY WILL TRANSPORT HIM TODAY I ATTEMPTED TO CALL THE PATIENT'S TO LET HER KNOW ABOUT THE SMALL PIECE CUTTER TIME AND I DID NOT GET AN ANSWER WHEN I SPOKE WITH THE YESTERDAY SHE KNEW THAT HE WAS ACCEPTED TO [facility] DCP- Discharge Planning Updated by [id number]: Aleja Fox on 09/17/20 9:[address] SPOKE WITH YOVANY AT [facility] AND THEY DO NOT HAVE ANY BEDS AT THIS TIME, I WILL SEND A REFERRAL TO [facility] ( [facility]) DCP- Discharge Planning Updated by [email or web address]: Tad Ulrich on 09/16/20 5:[address] DCP CHANGE | No return to the [facility]. Conference with Dr. Pabon at Nurse's station. Dr. Pabon informed CM team that the patient's family does not want the patient to return to the [facility]. Phone call to Rhonda Talamantes, spouse of patient. Mrs Talamantes stated that she does not want the patient to return to the [facility]. Mrs Talamantes stated that her choices for placement would be (1) [facility]; (2) [facility]; (3) [facility]; (4) [place]; (5) [facility] Inpatient Rehab; and (6) [facility] Inpatient Rehab. NILDA telephonically signed and placed in chart. CM will continue to follow and will assist as needed with dc plans/needs. 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 PLAN WILL BE TO RETURN THERE THEN AFTER REHAB RETURN HOME TO HIS CM TO FOLLOW AND ASSIST NEEDED DCPIA - Discharge Planning Initial Assessment Updated by [id number]: Aleja Fox on 09/13/20 7:45 am * Facility Name [facility] Coverage Notice Reviewer: [id number] Logan Ulrich Notice Issued Date-Time: 09/16/2020 18:05 Notice Type: Patient Choice Letter Notice Delivered To: Patient Relationship to Patient: Self Seal Mixer Name: Delivery Method: MAIL - Mail Caitlin Days: Prior Verbal Notification: Recipient Understood Notice: Yes Recipient Signature: Yes Med Rec Note Co-signed by Attending: Coverage Notice Comment: (1) [facility]; (2) [facility]; (3) [facility]; (4) [place]; (5) [facility] Inpatient Rehab; and (6) [facility] Inpatient Rehab. Last DP export: 09/17/20 9:10 a Patient Name: MARICRUZ TALAMANTES Page 26663 at 1219 All edits/amendments must be made on the electronic document DICTATION DATE: 09/18/201217 SCHOOL CAFETERIA COOK HEAD: OPAL 09/18/20 1218 RPT#: [id number] DC DATE: STATUS: ADM IN [facility] [address] [place] [address] END OF REPORT"
[2020-09-18 13:02] VITALS: BP 155/69
--- NOTE | 2020-09-18 14:33 | MORECARE ---
"CASE MANAGEMENT DISCHARGE SUMMARY PATIENT: MARICRUZ TALAMANTES UNIT: [id number] ADM DATE: 09/06/20 AGE: 75 : 45 SEX: M ROOM/BED: D.2201 AUTHOR: HARSH,DOC PHYSICIAN: REFERRING PHYSICIAN: KAT OSEI MD DATE OF SERVICE: 09/18/20 Discharge Plan Patient Name: MARICRUZ TALAMANTES Facility: [facility]:[place] : 1945 Planned Disposition: Senior Care Facility Anticipated Discharge Date: Discharge Date: Expected LOS: Initial Reviewer: [id number] Initial Review Date: 09/06/2020 Generated: 09/18/20 3:33 pm Comments DCP- Discharge Planning Updated by [id number]: Aleja Fox on 09/18/20 1:[address] IMM SERVED AND EXPLAINED COPY ON CHART DCP- Discharge Planning Updated by [id number]: Aleja Fox on 09/18/20 11:[address] PATIENT HAS BEEN ACCEPTED TO [facility] AND WILL BE GOING TO A SKILLED BED THEY WILL TRANSPORT HIM TODAY I ATTEMPTED TO CALL THE PATIENT'S TO LET HER KNOW ABOUT THE DIRECTOR OF CONSULTING SERVICES TIME AND I DID NOT GET AN ANSWER WHEN I SPOKE WITH THE YESTERDAY SHE KNEW THAT HE WAS ACCEPTED TO [facility] DCP- Discharge Planning Updated by [id number]: Aleja Fox on 09/17/20 9:[address] SPOKE WITH YOVANY AT [facility] AND THEY DO NOT HAVE ANY BEDS AT THIS TIME, I WILL SEND A REFERRAL TO [facility] ( [facility]) DCP- Discharge Planning Updated by [id number]: Tad Ulrich on 09/16/20 5:[address] DCP CHANGE | No return to the [facility]. Conference with Dr. Pabon at Nurse's station. Dr. Pabon informed CM team that the patient's family does not want the patient to return to the [facility]. Phone call to Rhonda Talamantes, spouse of patient. Mrs Talamantes stated that she does not want the patient to return to the [facility]. Mrs Talamantes stated that her choices for placement would be (1) [facility]'s; (2) [facility]; (3) [facility]; (4) [facility]; (5) [facility] Inpatient Rehab; and (6) [facility]. NILDA telephonically signed and placed in chart. CM will continue to follow and will assist as needed with dc plans/needs. 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 PLAN WILL BE TO RETURN THERE THEN AFTER REHAB RETURN HOME TO HIS CM TO FOLLOW AND ASSIST NEEDED DCPIA - Discharge Planning Initial Assessment Updated by [email or web address]: Aleja Fox on 09/13/20 7:45 am * Facility Name [facility] Coverage Notice Reviewer: [id number] Logan Ulrich Notice Issued Date-Time: 09/16/2020 18:05 Notice Type: Patient Choice Letter Notice Delivered To: Patient Relationship to Patient: Self Fiberglass Dowel Drawing Operator Name: Delivery Method: MAIL - Mail Caitlin Days: Prior Verbal Notification: Recipient Understood Notice: Yes Recipient Signature: Yes Med Rec Note Co-signed by Attending: Coverage Notice Comment: (1) [facility]; (2) [facility]; (3) [facility]; (4) [facility]; (5) [facility] Inpatient Rehab; and (6) [facility]. Reviewer: [id number] - Aleja Fox Notice Issued Date-Time: 09/18/2020 14:20 Notice Type: IM Discharge Notice Notice Delivered To: Patient Relationship to Patient: Fiberglass Dowel Drawing Operator Name: Delivery Method: HAND - Hand Delivered Caitlin Days: Prior Verbal Notification: Recipient Understood Notice: Yes Recipient Signature: Yes Med Rec Note Co-signed by Attending: Coverage Notice Comment: Last DP export: 09/18/20 11:19 a Patient Name: MARICRUZ TALAMANTES Page [id number] at 1433 All edits/amendments must be made on the electronic document DICTATION DATE: 09/18/20 1433 LINEN SORTER: OPAL 09/18/20 143 RPT#: [id number] DC DATE: STATUS: ADM IN [facility] [address] [place] [address] END OF REPORT"
--- NOTE | 2020-09-18 15:51 | NUR ---
OT NOTE: PT EXHIBITED TENDENCY FOR LATERAL LEFT LEAN WHILE SITTING AT EOB. PT REQUIRED MOD-MAX A FOR SUPINE TO SIT. PT REQUIRED MIN-MOD A FOR SITTING BALANCE WITH UE AROM. PT COMPLETED SIT TO STAND WITH MAX A TO MAINTAIN WT BEARING PRECAUTIONS. PT COMPLETED FACE AND HAND HYGIENE WITH SETUP. [phone] DAVID FLORES COTA
--- NOTE | 2020-09-19 06:57 | MORECARE ---
"CASE MANAGEMENT DISCHARGE SUMMARY PATIENT: MARICRUZ TALAMANTES UNIT: [id number] ADM DATE: 09/06/20 AGE: 75 : 45 SEX: M ROOM/BED: D.2201 AUTHOR: HARSH,DOC PHYSICIAN: REFERRING PHYSICIAN: KAT OSEI MD DATE OF SERVICE: 09/19/20 Discharge Plan Patient Name: MARICRUZ TALAMANTES Facility: [facility]:[place] : 1945 Planned Disposition: Fpc Facility Anticipated Discharge Date: Discharge Date: 09/18/2020 Expected LOS: 0 Initial Reviewer: [id number] Initial Review Date: 09/06/2020 Generated: 09/19/20 7:56 am Comments DCP- Discharge Planning Updated by [id number]: Aleja Fox on 09/18/20 1:[address] IMM SERVED AND EXPLAINED COPY ON CHART DCP- Discharge Planning Updated by [id number]: Aleja Fox on 09/18/20 11:[address] PATIENT HAS BEEN ACCEPTED TO [facility] AND WILL BE GOING TO A SKILLED BED THEY WILL TRANSPORT HIM TODAY I ATTEMPTED TO CALL THE PATIENT'S TO LET HER KNOW ABOUT THE OFFAL BALER TIME AND I DID NOT GET AN ANSWER WHEN I SPOKE WITH THE YESTERDAY SHE KNEW THAT HE WAS ACCEPTED TO [facility] DCP- Discharge Planning Updated by [id number]: Aleja Fox on 09/17/20 9:[address] SPOKE WITH YOVANY AT [facility] AND THEY DO NOT HAVE ANY BEDS AT THIS TIME, I WILL SEND A REFERRAL TO [facility] ( [facility]) DCP- Discharge Planning Updated by [id number]: Tad Ulrich on 09/16/20 5:[address] DCP CHANGE | No return to the [facility]. Conference with Dr. Pabon at Nurse's station. Dr. Pabon informed CM team that the patient's family does not want the patient to return to the [facility]. Phone call to Rhonda Talamantes, spouse of patient. Mrs Talamantes stated that she does not want the patient to return to the [facility]. Mrs Talamantes stated that her choices for placement would be (1) [facility]; (2) [facility]; (3) [facility]; (4) [facility]; (5) [facility] Inpatient Rehab; and (6) [facility]. NILDA telephonically signed and placed in chart. CM will continue to follow and will assist as needed with dc plans/needs. 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 PLAN WILL BE TO RETURN THERE THEN AFTER REHAB RETURN HOME TO HIS CM TO FOLLOW AND ASSIST NEEDED DCPIA - Discharge Planning Initial Assessment Updated by [email or web address]: Aleja Fox on 09/13/20 7:45 am * Facility Name [facility] Coverage Notice Reviewer: [id number] Logan Ulrich Notice Issued Date-Time: 09/16/2020 18:05 Notice Type: Patient Choice Letter Notice Delivered To: Patient Relationship to Patient: Self Prenatal Teacher Name: Delivery Method: MAIL - Mail Caitlin Days: Prior Verbal Notification: Recipient Understood Notice: Yes Recipient Signature: Yes Med Rec Note Co-signed by Attending: Coverage Notice Comment: (1) [facility]; ([facility]) [facility]; (3) [facility]; (4) [facility]; (5) [facility] Inpatient Rehab; and (6) [facility]. Reviewer: [id number] - Aleja Fox Notice Issued Date-Time: 09/18/2020 14:20 Notice Type: IM Discharge Notice Notice Delivered To: Patient Relationship to Patient: Prenatal Teacher Name: Delivery Method: HAND - Hand Delivered Caitlin Days: Prior Verbal Notification: Recipient Understood Notice: Yes Recipient Signature: Yes Med Rec Note Co-signed by Attending: Coverage Notice Comment: Last DP export: 09/18/20 1:33 p Patient Name: MARICRUZ TALAMANTES Page [phone] at 0657 All edits/amendments must be made on the electronic document DICTATION DATE: 09/19/20655 GRADES 1 THROUGH 6 TEACHER: OPAL 09/19/2056 RPT#: [id number] DC DATE:09/18/20 STATUS: DIS IN [facility] [address] [place] [address] END OF REPORT"
== END 2020-09-18 16:00 | DRG 871 ==
LOC: D.ER 14:26 → D.MS 16:50 → D.EDHOLD 16:50 → D.MS 09-07 17:09
PROVIDERS: Emergency Medicine; Family Medicine; ADMIT Legal Medicine; ATTEND Legal Medicine
DX: A41.9 Sepsis, unspecified organism (principal); G93.41 Metabolic encephalopathy; N39.0 Urinary tract infection, site not specified; G93.40 Encephalopathy, unspecified; N17.9 Acute kidney failure, unspecified; E87.1 Hypo-osmolality and hyponatremia; F03.90 Unspecified dementia, unspecified severity, without behavioral disturbance, psychotic disturbance, mood disturbance, and anxiety; E87.6 Hypokalemia; I10 Essential (primary) hypertension; G20 Parkinson's disease; Z79.01 Long term (current) use of anticoagulants

== ENCOUNTER → 2020-09-20 04:26 | Outpatient (CLI) | payer MEDICARE ==
[2020-09-14 10:49] VITALS: BMI 25.8
[~2020-09-20 04:26] MED LIST: ACCUPRIL20 MG; BAYER CHEWABLE81 MG; CALCIUM 500 +1 EAC3; CARBIDOPA-LEVO1 EAC2; CO Q-10100 MG; DILTIAZEM 24HR120 M3; K-DUR20 MEQ PO; KEFLEX500 MG; LIPITOR40 MG; MAG-OX 400 MG400 MG; OXYCODONE HCL10 MG; SYNTHROID50 MCG PO; VITAMIN B-1250 MG; WARFARIN SODIUM4 MG NG
[2020-09-20 07:19] LABS: ALKALINE PHOSPHATASE 134 U/L (30-120); BILIRUBIN - TOTAL 1.04 mg/dL (0.2-1.3); CARBON DIOXIDE 20.6 mmol/L (21.0-32.0); CHLORIDE - SERUM 100 mmol/L (98-107); CREATININE - SERUM 0.8 mg/dL (0.6-1.3); POTASSIUM - SERUM 3.5 mmol/L (3.5-5.1); PROTEIN - SERUM 6.6 g/dL (6.4-8.2); SODIUM 136 mmol/L (136-145); eGFR NON AFRICAN AMERICAN > 90 mL/min (90-120)
[2020-09-20 07:44] LABS: CALC OSMOLALITY 267 mosm/kg (275-300); UREA NITROGEN 9 mg/dL (7-18)
[2020-09-20 07:45] LABS: ALBUMIN 3.2 g/dL (3.4-5.0); ALT (SGPT) 38 U/L (10-68)
[2020-09-20 07:55] LABS: GLUCOSE 44 mg/dL (74-106)
[2020-09-20 13:39] LABS: HEMATOCRIT 31.7 % (42.0-54.0); HEMOGLOBIN 10.5 g/dL (13.5-17.5); LYMPHOCYTES 27.8 % (15-50); MCH 32.8 pg (26.0-34.0); MCHC 33.1 g/dL (31.0-37.0); MCV 99.1 fL (80.0-100.0); MEAN PLATELET VOLUME 9.5 fL (7.4-10.4); NEUTROPHILS 63.5 % (40-80); PLATELET COUNT 234 10x3/uL (130-400); RDW 17.1 % (11.5-14.5); WBC 5.3 10x3/uL (4.8-10.8)
== END | disposition home or self-care (01) ==
LOC: D.LABREF 04:26
PROVIDERS: ATTEND Family Medicine
DX: A41.51 Sepsis due to Escherichia coli [E. coli] (principal); N39.0 Urinary tract infection, site not specified; G20 Parkinson's disease; S32.89XD Fracture of other parts of pelvis, subsequent encounter for fracture with routine healing; N17.9 Acute kidney failure, unspecified; I10 Essential (primary) hypertension; D63.1 Anemia in chronic kidney disease; S72.92XD Unspecified fracture of left femur, subsequent encounter for closed fracture with routine healing

== ENCOUNTER → 2020-09-28 22:34 | Outpatient (CLI) | payer MEDICARE ==
[2020-09-14 10:49] VITALS: BMI 25.8
[2020-09-28 23:30] LABS: INR 1.72 (0.85-1.17); PROTIME 18.7 SECONDS (11.6-15.0)
== END | disposition home or self-care (01) ==
LOC: D.LABREF 22:34
PROVIDERS: ATTEND Family Medicine
DX: Z51.81 Encounter for therapeutic drug level monitoring (principal)

== ENCOUNTER → 2020-10-01 15:31 | Outpatient (CLI) | payer MEDICARE ==
[2020-09-14 10:49] VITALS: BMI 25.8
[2020-10-01 16:36] LABS: INR 1.65 (0.85-1.17); PROTIME 18.1 SECONDS (11.6-15.0)
== END | disposition home or self-care (01) ==
LOC: D.LABREF 15:31
PROVIDERS: ATTEND Legal Medicine
DX: Z51.81 Encounter for therapeutic drug level monitoring (principal)

== ENCOUNTER → 2020-10-04 16:14 | Outpatient (CLI) | payer MEDICARE ==
[2020-09-14 10:49] VITALS: BMI 25.8
[2020-10-04 16:53] LABS: BILIRUBIN NEGATIVE (NEGATIVE); KETONE NEGATIVE (NEGATIVE); NITRITE NEGATIVE (NEGATIVE); UROBILINOGEN NORMAL mg/dL (< 2)
== END | disposition home or self-care (01) ==
LOC: D.LABREF 16:14
PROVIDERS: ATTEND Legal Medicine
DX: R41.0 Disorientation, unspecified (principal)

== ENCOUNTER → 2020-10-08 18:37 | Outpatient (CLI) | payer MEDICARE ==
[2020-09-14 10:49] VITALS: BMI 25.8
[2020-10-08 20:04] LABS: INR 1.86 (0.85-1.17); PROTIME 19.9 SECONDS (11.6-15.0)
== END | disposition home or self-care (01) ==
LOC: D.LABREF 18:37
PROVIDERS: ATTEND Family Medicine
DX: Z51.81 Encounter for therapeutic drug level monitoring (principal)

== ENCOUNTER → 2020-10-15 17:42 | Outpatient (CLI) | payer MEDICARE ==
[2020-09-14 10:49] VITALS: BMI 25.8
[2020-10-15 19:16] LABS: INR 1.49 (0.85-1.17); PROTIME 16.7 SECONDS (11.6-15.0)
== END | disposition home or self-care (01) ==
LOC: D.LABREF 17:42
PROVIDERS: ATTEND Family Medicine
DX: Z51.81 Encounter for therapeutic drug level monitoring (principal)

== ENCOUNTER → 2020-10-24 18:28 | Outpatient (CLI) | payer MEDICARE ==
[2020-09-14 10:49] VITALS: BMI 25.8
[2020-10-25 11:06] LABS: ALBUMIN 3.9 g/dL (3.4-5.0); ALKALINE PHOSPHATASE 102 U/L (30-120); ALT (SGPT) 12 U/L (10-68); BILIRUBIN - TOTAL 0.37 mg/dL (0.2-1.3); CALC OSMOLALITY 277 mosm/kg (275-300); CALCIUM 8.5 mg/dL (8.5-10.1); CARBON DIOXIDE 25.4 mmol/L (21.0-32.0); CHLORIDE - SERUM 102 mmol/L (98-107); CREATININE - SERUM 0.9 mg/dL (0.6-1.3); GLUCOSE 87 mg/dL (74-106); POTASSIUM - SERUM 4.2 mmol/L (3.5-5.1); PROTEIN - SERUM 6.8 g/dL (6.4-8.2); SODIUM 138 mmol/L (136-145); UREA NITROGEN 22 mg/dL (7-18); eGFR NON AFRICAN AMERICAN 87 mL/min (90-120)
[2020-10-25 11:06] LABS: BASOPHILS 0.7 % (0-2); EOSINOPHILS 4.7 % (0-7); HEMATOCRIT 35.1 % (42.0-54.0); HEMOGLOBIN 10.3 g/dL (13.5-17.5); IMMATURE GRANULOCYTES 0.2 % (0-5); LYMPHOCYTE ABS# 1.36 10x3/uL (1.32-3.57); LYMPHOCYTES 30.4 % (15-50); MCH 30.4 pg (26.0-34.0); MCHC 29.3 g/dL (31.0-37.0); MCV 103.5 fL (80.0-100.0); MEAN PLATELET VOLUME 10.2 fL (7.4-10.4); MONOCYTES 7.1 % (2-11); NEUTROPHIL ABS# 2.55 10x3/uL (1.78-5.38); NEUTROPHILS 56.9 % (40-80); PLATELET COUNT 227 10x3/uL (130-400); RBC 3.39 10x6/uL (4.20-6.10); RDW 14.7 % (11.5-14.5); WBC 4.5 10x3/uL (4.8-10.8)
== END | disposition home or self-care (01) ==
LOC: D.LABREF 18:28
PROVIDERS: ATTEND Family Medicine
DX: Z51.81 Encounter for therapeutic drug level monitoring (principal); R41.0 Disorientation, unspecified

== ENCOUNTER → 2020-10-25 15:20 | Outpatient (CLI) | payer MEDICARE ==
[2020-09-14 10:49] VITALS: BMI 25.8
[2020-10-25 16:16] LABS: INR 1.89 (0.85-1.17); PROTIME 20.2 SECONDS (11.6-15.0)
== END | disposition home or self-care (01) ==
LOC: D.LABREF 15:20
PROVIDERS: ATTEND Legal Medicine
DX: Z51.81 Encounter for therapeutic drug level monitoring (principal)